=== PATIENT | male | born 1950 | race Caucasian/White ===

== ENCOUNTER → 2017-05-25 | Outpatient (CLI) | payer MEDICARE ==
[~2017-05-25] MED LIST: ALBU90AE IH; ASPI-555 PO; GABA-318 PO; GLIP1TAB6 PO; HYDR12.530 PO; IOPAMIDOL-370 100 ML VIAL IV ONE; LISI10TA7 PO; PROGLITAZONE HCL PO; SIMV40TA5 PO; TIOT18CA3 IH
== END | disposition home or self-care (01) ==
LOC: OIH 08:35
PROVIDERS: ATTEND Internal Medicine Cardiovascular Disease
DX: I71.4 Abdominal aortic aneurysm, without rupture (principal)
CPT/HCPCS: 74174; Q9967

== ENCOUNTER 2021-06-28 12:30 | Emergency (ER) | payer OTHER, MEDICARE ==
[~2021-06-28] VITALS: Ht 185.4 cm; Wt 78.0 kg
[~2021-06-28 12:30] MED LIST changes: +ACET1TAB25 PO; -ASPI-555 PO; +ASPI-556 PO; -GABA-318 PO; +GABA600T10 PO; -IOPAMIDOL-370 100 ML VIAL IV ONE; +LISI10TA24 PO; -LISI10TA7 PO; +SIMV-46 PO; -SIMV40TA5 PO
[2021-06-28 12:56] LABS: BASOPHILS % (AUTO) 0.7 % (0.0-5.0); EOSINOPHILS % (AUTO) 0.6 % (0.0-8.0); HEMATOCRIT 37.3 % (42-54); LYMPHOCYTES % (AUTO) 4.2 % (21.0-51.0); MEAN CORPUSCULAR HEMOGLOBIN 34.3 pg (27.0-33.0); MEAN CORPUSCULAR HGB CONC 32.7 g/dL (32.0-36.0); MEAN CORPUSCULAR VOLUME 104.8 fL (79-99); MONOCYTES % (AUTO) 9.2 % (3.0-13.0); NEUTROPHILS % (AUTO) 83.4 % (40.0-77.0); PLATELET COUNT (AUTO) 347 K/uL (130-400); RED BLOOD CELL COUNT(AUTO) 3.56 MIL/uL (4.50-6.20); RED CELL DISTRIBUTION WIDTH 14.2 % (11.0-15.5); WHITE BLOOD COUNT (AUTO) 11.5 K/uL (4.8-10.8)
[2021-06-28 13:06] LABS: CREATININE 0.8 mg/dL (0.5-1.5); POTASSIUM 4.4 mmol/L (3.5-5.1)
[2021-06-28 13:11] LABS: ALBUMIN 2.2 g/dL (3.5-5.0); BILIRUBIN,TOTAL 0.7 mg/dL (0.2-1.0); TOTAL PROTEIN, SERUM 5.6 g/dL (6.0-8.3)
[2021-06-28 13:47] LABS: CRP QUANTITATIVE 252.3 mg/L (0.00-9.0)
[2021-06-28 14:46] VITALS: BP 124/74
== END 2021-06-28 15:14 | disposition home or self-care (01) ==
LOC: EDH 12:30
DX: K91.840 Postprocedural hemorrhage of a digestive system organ or structure following a digestive system procedure (principal); E11.9 Type 2 diabetes mellitus without complications; E78.00 Pure hypercholesterolemia, unspecified; I11.0 Hypertensive heart disease with heart failure; I50.9 Heart failure, unspecified; F17.200 Nicotine dependence, unspecified, uncomplicated; J44.9 Chronic obstructive pulmonary disease, unspecified; Z79.82 Long term (current) use of aspirin; Z79.84 Long term (current) use of oral hypoglycemic drugs; Z79.899 Other long term (current) drug therapy; Z93.3 Colostomy status; Z95.5 Presence of coronary angioplasty implant and graft
CPT/HCPCS: 36415; 80053; 85025; 86140